=== PATIENT | female | born 1970 | race African-American/Black ===

== ENCOUNTER 2016-06-04 12:16 | Emergency (ER) | payer OTHER ==
--- NOTE | ~2016-06-04 | CT2 ---
[facility] A Service [facility] RADIOLOGY TEXT RESULTS PATIENT: JONATHAN JAIME LOCATION: [facility] : 74 UNIT #: [id number] AGE: [address]: Raymond Avila MD SEX: F ORDER DR: [id number] [facility] [address] [place], [place] [address] [id number] E MR#: [id number] Acc #: [id number] NAME: JONATHAN JAIME. : 1970 SEX: F STUDY DATE/TIME: 06/04/2016 13:45 UNIT: RIGO ROOM: STUDY DESCRIPTION: CT Abd and Pelv W Cont Attending Physician: Abdelrahman Avila M.D. Ordering Physician: Dominguez Romero M.D. Primary Care Physician: [facility] REPORT This report is preliminary unless electronic signature is present EXAM CT abdomen and pelvis INDICATION Diffuse abdominal pain, nausea and vomiting for 3 days. Mid and upper abdominal pain. TECHNIQUE CT of the abdomen and pelvis with p.o. and IV contrast (100 mL Isovue-370 IV contrast). Coronal and sagittal reconstructions were obtained. This CT exam was performed with one or more of the following radiation dose reduction techniques: automatic exposure control, adjustment of mA and/or kV according to patient size, and iterative reconstruction. COMPARISON CT abdomen dated 05/04/2008. FINDINGS ABDOMEN: The solid abdominal organs enhance normally. The gallbladder is not distended. There is borderline enlargement of the common bile duct in a patient status post cholecystectomy. The bowel is not dilated. No enlarged retroperitoneal or mesenteric lymph nodes. The abdominal aorta is normal in caliber. PELVIS: No pelvic mass. Uterus and ovaries are within normal limits. No enlarged pelvic or inguinal lymph nodes. No acute osseous abnormalities. IMPRESSION 1. No acute findings in the abdomen or pelvis. [facility] A Service [facility] RADIOLOGY TEXT RESULTS PATIENT: JONATHAN JAIME LOCATION: [facility] : 74 UNIT #: [id number] AGE: [address]: Raymnod Avila MD SEX: F ORDER DR: Dictated by... Harlan Carter M.D. THIS IS AN ELECTRONICALLY VERIFIED REPORT Harlan Carter M.D. at 06/04/2016 4:13 PM C/ernesto TD: 06/04/2016 15:13 JOB #: [id number] MEDICAL IMAGING REPORT Page 1 of 1 COPY
[2016-06-04 12:01] LABS: BASOPHIL% 0.8 % (0-2.5); EOSINOPHIL# 0.1 X10e3 (0-0.7); EOSINOPHIL% 1.3 % (0.0-7.0); HEMOGLOBIN 13.4 gm/dL (12.0-16.0); LYMPHOCYTE# 1.9 X10e3 (1.0-3.5); MEAN CELL VOLUME 85.2 FL (83-96); MEAN CORPUSCULAR HEMOGLOBIN 28.6 PG (28-34); MEAN CORPUSCULAR HGB CONC 33.6 g/dL (30-36); MEAN PLATELET VOLUME 7.7 FL (6.5-11.5); MONOCYTE# 0.3 X10e3 (0-1.0); NEUTROPHIL# 2.9 X10e3 (1.5-7.1); NEUTROPHIL% 55.9 % (40-75); PLATELET COUNT 338 X10e3 (140-420); RED BLOOD COUNT 4.69 X10e (3.90-5.30); RED CELL DISTRIBUTION WIDTH 15.6 % (11.0-15.5); WHITE BLOOD COUNT 5.3 X10e3 (4.0-10.5)
[2016-06-04 12:08] LABS: DIFF IND NO
[~2016-06-04 12:16] MED LIST: ADVAIR 250-501 EACH IH; ALBUTEROL17 GM INH; APRESOLINE PO; CELEXA PO; COLCHICINE PO; COMPAZINE10 MG PO; COREG PO; DEPO-PROVE150 MG/1 M IM; DIOVAN PO; DYAZIDE 37.5/251 CAP PO; FLEXERIL PO; HCTZ PO; LASIX PO; LORTAB 7.5-5001 TAB PO; METFORMIN HCL500 M1 PO; NORMODYNE PO; NORVASC PO; ORUDIS75 M1 PO; PHENERGAN PO; PRILOSEC PO; PROTONIX PO; REGLAN PO; SINGULAIR PO; ZOFRAN PO
[2016-06-04 12:34] LABS: ALBUMIN SERUM 4.2 g/dL (3.5-5.0); BILIRUBIN, DIRECT 0.1 mg/dL (0.0-0.2); BILIRUBIN,INDIRECT 0.4 mg/dL (0.0-0.9); BILIRUBIN,TOTAL 0.5 mg/dL (0.2-2.0); CALCIUM SERUM 9.2 mg/dL (8.4-10.2); CREATININE SERUM 0.8 mg/dL (0.6-1.4); GLOM FILT RATE Estimated 104.7 mL/min (>60); POTASSIUM 4.2 mmol/L (3.5-5.1); PROTEIN TOTAL SERUM 8.2 g/dL (6.0-8.3)
[2016-06-04 13:09] LABS: URINE SOURCE CLEAN CATCH
[2016-06-04 13:16] LABS: URINE APPEARANCE CLEAR; URINE BILIRUBIN NEG (NEG); URINE BLOOD 2+ (NEG); URINE COLOR YELLOW; URINE GLUCOSE NEG (NEG); URINE KETONE NEG (NEG); URINE LEUKOCYTE ESTERASE NEG (NEG); URINE NITRATE NEG (NEG); URINE PH 7.5 (5-8); URINE PROTEIN NEG (NEG); URINE SPECIFIC GRAVITY 1.005 (1.003-1.035); URINE UROBILINOGEN 0.2 MG/DL (NEG)
[2016-06-04 13:18] LABS: URBCS1 AUWI 0-2 /[HPF] (0-2); URINE BACTERIA AUWI NEG (NEGATIVE); URINE SQUAMOUS EPITHELIAL CELL NONE SEEN /[HPF]; UWBCS1 AUWI 0-2 (0-5)
[2016-06-04 13:20] LABS: CULTURE INDICATED? NO
== END 2016-06-04 14:45 | disposition home or self-care (01) ==
LOC: CED 12:16
PROVIDERS: Emergency Medicine
DX: R10.84 Generalized abdominal pain (principal); R11.2 Nausea with vomiting, unspecified; R19.7 Diarrhea, unspecified; I10 Essential (primary) hypertension; K21.9 Gastro-esophageal reflux disease without esophagitis; M19.90 Unspecified osteoarthritis, unspecified site; F17.210 Nicotine dependence, cigarettes, uncomplicated; Z88.0 Allergy status to penicillin
CPT/HCPCS: 36415; 74177; 80048; 80076; 81003; 82150; 83690; 84703; 85025; 96361; 96374; 96375; 99284; J1885; J2270; J2405; J2550; Q9967

== ENCOUNTER 2016-06-09 15:24 | Inpatient (IN) | payer OTHER ==
--- NOTE | ~2016-06-09 | HP ---
Unit #: [id number] #: [id number] Patient: JONATHAN JAIME [id number] [address] [address] [id number] I MR#: [id number] NAME: JONATHAN JAIME. ROOM: [facility] Age: 45 Sex: F Admission Date: 06/09/2016 : 1970 Attending Physician: Erin Araiza M.D. Primary Care Physician: [facility], [facility]. HISTORY AND PHYSICAL CHIEF COMPLAINT Intractable nausea and vomiting with accelerated hypertension. HISTORY OF PRESENT ILLNESS This 45-year-old female with GERD, hypertension, is admitted for intractable nausea and vomiting and accelerated hypertension. The patient states that she was well until two days prior to admission when she developed intractable, nonbloody nausea and vomiting, unable to keep down her medicines. She had one episode of nonbloody diarrhea, has experienced abdominal discomfort. She presented to this emergency department this afternoon with a blood pressure of 218/106. She was treated with a bolus of saline, given Zofran, morphine, GI cocktail, labetalol, Toradol, a couple dose of labetolol, Bentyl, Phenergan. She is actively vomiting as I walk into her room and her blood pressure is still elevated. On examination, she has mild generalized abdominal tenderness. PAST MEDICAL HISTORY 1. Essential hypertension. 2. Asthma. 3. GERD 10/2008 for intractable nausea and vomiting revealing chronic gastritis. 4. History of GERD. 5. History of supraventricular tachycardia 04/23. 6. Cervical conization for dysplasia. 7. Knee surgery. 8. Cholecystectomy. 9. . SOCIAL HISTORY The patient lives with her son. She smokes occasionally, does not drink alcohol, denies any possibility of and no illicit drug use. FAMILY HISTORY Hypertension. ALLERGEIS Penicillin resulting in hives. HOME MEDICATIONS 1. Maxzide daily. 2. Norvasc 10 mg daily. 3. Coreg 12.5 mg b.i.d. 4. Cozaar 100 mg daily. Unit #: [id number] #: [id number] Patient: JONATHAN JAIME 5. Zantac 300 mg q.h.s. 6. Bentyl 10 mg q.i.d. p.r.n. 7. Omeprazole 20 mg daily. 8. Vitamin D2 50,000 units each week. REVIEW OF SYSTEMS Hypertension, asthma, palpitations, GERD, gastritis, abdominal discomfort, above-mentioned surgeries. All other systems were reviewed and are otherwise negative. PHYSICAL EXAMINATION GENERAL APPEARANCE: A 45-year-old obese female who is actively vomiting when I see her in her room. VITAL SIGNS: Temperature 98.7. Pulse 76. Respirations 24. Initial blood pressure 218/106. O2 saturation 100% on room air. HEENT: Eyes: PERRLA. Extraocular muscles are intact. Pharynx is benign. NECK: Supple without adenopathy or thyromegaly. CHEST: Clear. CARDIAC: Normal S1, S2 without S3, S4 or murmur. ABDOMEN: Bowel sounds are present. The patient is tender in the epigastric right upper quadrant without rebound or guarding. No hepatosplenomegaly or masses. EXTREMITIES: Without clubbing, cyanosis or edema. Pedal pulses are present. NEUROLOGIC: The patient is awake, alert, oriented. Cranial nerves are intact. Equal strength throughout. DIAGNOSTIC STUDIES LABORATORY: Hematocrit 41.7, normal white count, platelet count. SMA-12 is normal. Normal lipase. Urinalysis: 2+ protein, 5 to 10 red cells, 5 to 10 white cells but moderate squamous cells making this a poor specimen. IMAGING: Acute abdominal series unremarkable. ASSESSMENT 1. Intractable nausea and vomiting. 2. Accelerated hypertension. The patient has not been able to keep down her medicines. 3. GERD. 4. History of supraventricular tachycardia. PLAN 1. Proton pump inhibitor IV. 2. Reglan, Zofran. 3. Blood pressure control. 4. IV fluids and supportive treatment. 5. SCDs for DVT prophylaxis. Dictated by Erin Araiza M.D. AML/bd TD: 06/10/2016 06:00 JOB #: [id number] Unit #: [id number] #: [id number] Patient: JONATHAN JAIME HISTORY AND PHYSICAL Page 1 of 1 X Erin Araiza MD HISTORY AND PHYSICAL
--- NOTE | ~2016-06-09 | DS ---
Unit #: [id number] #: [id number] Patient: JONATHAN JAIME [id number] [address] [place], [place] [address] [id number] I MR#: [id number] NAME: JONATHAN JAIME. ROOM: 312 Age: 45 Sex: F Admission Date: 06/09/2016 : 1970 Discharge Date: 06/14/2016 Attending Physician: Amalia Chaparro M.D. Primary Care Physician: [facility], [facility]. DISCHARGE SUMMARY REASON FOR ADMISSION Intractable nausea and vomiting, accelerated hypertension. HISTORY OF PRESENT ILLNESS/HOSPITAL COURSE The patient is a very pleasant 45-year-old -[place] female with an underlying history of GERD, hypertension, who was admitted secondary to intractable nausea and vomiting. She characterized her symptoms as going on several weeks prior to date of admission. She had, in fact, seen her primary care physician and was being worked up as an outpatient. Unfortunately, she developed this intractable nausea and vomiting, was unable to tolerate her blood pressure medications. Came to the emergency room where it was noted her blood pressure was 218/106. Subsequently, she was admitted for further evaluation. Initial p.o. challenge failed. She was unable to tolerate routine medications. Therefore, she was placed on a Cardene drip which was titrated and had to be placed initial part of hospital stay in the ICU. Gradually, this was discontinued. Transitioned into p.o. medications. We did place consultation to Dr. Santizo of gastroenterology services. Patient eventually underwent upper GI endoscopy which did reveal gastritis, erosive, as well as esophagitis in the distal portion. She was maintained on PPI therapy at b.i.d. dosing. Her blood pressure medications have been altered and/or changed. Please see below for complete regimen. At this point in time, patient is clinically stable for discharge. She has been able to tolerate a regular diet well without difficulty. She is to follow with her primary care physician at the [facility] in approximately seven to ten days for a blood pressure check. She is to be maintained on PPI therapy at b.i.d. dosing for approximately eight weeks. She will follow up with Dr. Santizo as an outpatient in approximately three to four weeks. Re-evaluation with upper GI endoscopy may be considered at a later point in time at the discretion of Dr. Santizo. FINAL DISCHARGE DIAGNOSES 1. Intractable nausea and vomiting. 2. Erosive gastritis. 3. Ulcerative esophagitis. 4. Obesity. 5. Hypertensive urgency, now resolved. Unit #: [id number] #: [id number] Patient: JONATHAN JAIME 6. Prior history of gastroesophageal reflux disease. 7. Helicobacter pylori positive on upper GI endoscopy. FINAL DISCHARGE MEDICATIONS 1. Bentyl 10 mg p.o. q.8 p.r.n. 2. Coreg 12.5 mg p.o. b.i.d. 3. Catapres/clonidine 0.2 mg p.o. daily. 4. Cozaar 25 mg p.o. daily. 5. Omeprazole 20 mg p.o. b.i.d. 6. H. pylori regimen to be determined by Dr. Santizo prior to discharge. DISCHARGE CONDITION Stable. DISCHARGE DISPOSITION Home. Dictated by... Cathie Conn/roma TD: 06/15/2016 11:52 JOB #: [id number] DISCHARGE SUMMARY Page 1 of 1 X Amalia Chaparro MD X DISCHARGE SUMMARY
--- NOTE | ~2016-06-09 | CO ---
Unit #: [id number] #: [id number] Patient: JONATHAN JAIME [id number] [address] [place], [place] [address] [id number] I MR#: [id number] NAME: JONATHAN JAIME. ROOM: [facility] Age: 45 Sex: F Admission Date: 06/09/2016 : 1970 Attending Physician: Amalia Chaparro M.D. Primary Care Physician: [facility]. Requesting Physician: Erin Araiza M.D. Consultation Date: 06/10/2016 CONSULTATION REPORT REASON FOR CONSULT Persistent severe nausea and vomiting. HISTORY OF PRESENT ILLNESS Ms. Jaime is a 45-year-old female with morbid obesity and hypertension in the past. Started with severe nausea, vomiting and abdominal pain last . She has not been able to take her medication or eat or drink since then and has persistent severe intractable vomiting. She had one episode of diarrhea, and there was no hematemesis. There is no blood in the stool. She says normally she moves her bowels pretty regularly. She does have a history of gastritis and reflux and takes PPIs regularly, also, at home. She denies taking any new medications, any new food or recent travel history. PAST MEDICAL HISTORY Past history is significant for hypertension, GERD and gastritis per EGD in 2008. She is status post cholecystectomy and C-sections. SOCIAL HISTORY Smoker. Denies any alcohol use. Denies any drug abuse. FAMILY HISTORY Mother with colon cancer. ALLERGIES Penicillin. MEDICATIONS Medications at home include Maxzide, Norvasc, Cozaar, Zantac, Bentyl, omeprazole and vitamin B12. REVIEW OF SYSTEMS A complete 10-point review of systems was done, which is unremarkable other than as has been detailed above. PHYSICAL EXAMINATION VITAL SIGNS: Vital signs are stable. Temperature 98.7, pulse 76, respirations 24, blood pressure 218/106. HEENT: Pupils equal and reactive. Sclera anicteric. Oral mucosa moist. NECK: No JVD. No lymphadenopathy. CHEST: Clear to auscultation bilaterally. CARDIOVASCULAR: Regular rate and rhythm. No murmurs. ABDOMEN: Mild generalized tenderness. No guarding. No rebound. Soft otherwise. Unit #: [id number] #: [id number] Patient: JONATHAN JAIME EXTREMITIES: Without clubbing, cyanosis or edema. NEUROLOGIC: Intact. SKIN: Warm and dry. DIAGNOSTIC STUDIES LABS: Hemoglobin is normal. Normal amylase and lipase. Chemistry seem unremarkable. IMAGING: CT abdomen twice, on 06/04 and 06/09, were unremarkable without any acute disease. ASSESSMENT 1. Patient with intractable nausea and vomiting. 2. Generalized abdominal pain. 3. Accelerated hypertension. 4. History of GERD and gastritis. PLAN At this time will keep her PPI and symptomatic treatment. Will need an upper endoscopy for further evaluation given her persistent abdominal pain, as well as family history of colon cancer. We will plan on a colonoscopy, also, in the near future. Treatment for blood pressure is already underway. Thank you, Dr. Araiza, for this interesting consult. Will follow along. Dictated by... Cathie Aguirre/john TD: 06/10/2016 10:01 JOB #: [id number] CONSULTATION REPORT Page 1 of 1 X Shaun Santizo MD X CONSULTATION REPORT
--- NOTE | ~2016-06-09 | CR2 ---
[facility] A Service of [facility] RADIOLOGY TEXT RESULTS PATIENT: JONATHAN JAIME LOCATION: [facility] : 74 UNIT #: [id number] AGE: [address]: Erin Araiza MD SEX: F ORDER DR: [id number] [facility] [address] [place], [place] [address] [id number] E MR#: [id number] Acc #: [id number] NAME: JONATHAN JAIME : 1970 SEX: F STUDY DATE/TIME: 06/09/2016 14:49 UNIT: RIGO ROOM: STUDY DESCRIPTION: CR Abdomen Acute Series Attending Physician: Raymond Avila Ordering Physician: Ed Doc Cathie Romero Primary Care Physician: [facility] IMAGING REPORT This report is preliminary unless electronic signature is present EXAM Acute abdomen series HISTORY Abdominal pain, nausea and vomiting and shortness of breath for the past week. TECHNIQUE A single view of the chest was obtained as well as flat and upright views of the abdomen. FINDINGS The chest examination is unremarkable with both lungs fully expanded and clear. In the abdomen, the bowel gas pattern is normal. There is no evidence of free air on the upright view. There is no evidence of mechanical obstruction and no suspicious masses or soft tissue calcifications are seen. Clips are seen in the right upper quadrant from previous surgery. IMPRESSION Normal bowel gas pattern. The lungs are clear. Dictated by... Nigel Renteria M.D. THIS IS AN ELECTRONICALLY VERIFIED REPORT Nigel Renteria M.D. at 06/10/2016 7:34 AM RLF/to TD: 06/09/2016 17:30 JOB #: [id number] [facility] A Service [facility] RADIOLOGY TEXT RESULTS PATIENT: JONATHAN JAIME LOCATION: [facility] CIC[facility]3-20 : 74 UNIT #: [id number] AGE: [address]: Erin Araiza MD SEX: F ORDER DR: MEDICAL IMAGING REPORT Page 1 of 1 COPY
--- NOTE | ~2016-06-09 | CR4 ---
[facility] Service of [facility] RADIOLOGY TEXT RESULTS PATIENT: JONATHAN JAIME LOCATION: [address] : 74 UNIT #: [id number] AGE: [address]: Amalia Chaparro MD SEX: F ORDER DR: [id number] [facility] [address] [place], [place] [address] [id number] I MR#: [id number] Acc #: [id number] NAME: JONATHAN JAIME : 1970 SEX: F STUDY DATE/TIME: 06/12/2016 12:51 UNIT: [facility] ROOM: [facility] STUDY DESCRIPTION: CR Abdomen Flat Upright or Dec Attending Physician: Amalia Chaparro M.D. Ordering Physician: Shaun Santizo M.D. Primary Care Physician: [facility], [facility]. MEDICAL IMAGING REPORT This report is preliminary unless electronic signature is present EXAM Flat and upright abdomen, 2 views, 06/12/2016. CLINICAL HISTORY 3-day history of intractable nausea and vomiting. FINDINGS Normal bowel gas pattern. There is a relative paucity of gas but no evidence free air or obstruction. IMPRESSION Negative acute abdominal series. Dictated by... Baldemar Rodriguez M.D. THIS IS AN ELECTRONICALLY VERIFIED REPORT Baldemar Rodriguez M.D. at 06/12/2016 4:51 PM TEV/bailee TD: 06/12/2016 14:46 JOB #: [id number] MEDICAL IMAGING REPORT Page 1 of 1 COPY
--- NOTE | ~2016-06-09 | CT4 ---
[facility] A Service of [facility] RADIOLOGY TEXT RESULTS PATIENT: JONATHAN JAIME LOCATION: [facility] CICCU3-20 : 74 UNIT #: [id number] AGE: [address]: Erin Araiza MD SEX: F ORDER DR: [id number] [facility] [address] [place], [place] [address] [id number] I MR#: [id number] Acc #: [id number] NAME: JONATHAN JAIME : 1970 SEX: F STUDY DATE/TIME: 06/10/2016 3:30 UNIT: CEDOF ROOM: 35075 STUDY DESCRIPTION: CT Abd and Pelv Wo Cont Attending Physician: Erin Araiza M.D. Ordering Physician: Erin Araiza M.D. [facility] REPORT This report is preliminary unless electronic signature is present EXAM CT abdomen and pelvis, noncontrast, 06/10/2016 HISTORY 45-year-old female admitted to the hospital through the ED yesterday complaining of 1-week history of abdomen pain, nausea and vomiting. Headache. TECHNIQUE CT examination of the abdomen and pelvis was performed without oral or IV contrast, as requested. This CT exam was performed with one or more of the following radiation dose reduction techniques: Automatic exposure control, adjustment of mA and/or kV according to patient size, and iterative reconstruction. COMPARISON CT abdomen and pelvis, 06/04/2016. FINDINGS ABDOMEN FINDINGS: Cholecystectomy. No visible bile duct dilatation. Liver, pancreas and spleen are normal in size and appearance. Both kidneys are negative, with no visible nephrolithiasis or evidence of urinary obstruction. Small bowel and colon are normal in caliber and appearance, as imaged. The appendix appears normal. Normal-caliber abdominal aorta. PELVIS FINDINGS: Uterus, ovaries, bladder and rectum are within normal limits. Limited lung base images are negative. IMPRESSION 1. No acute abnormality is seen within the abdomen or pelvis. No significant change since the recent study of 06/04/2016. [facility] A Service of [facility] RADIOLOGY TEXT RESULTS PATIENT: JONATHAN JAIME LOCATION: [address] : 74 UNIT #: [id number] AGE: [address]: Erin Araiza MD SEX: F ORDER DR: 2. Cholecystectomy. Dictated by... Everette Wolf M.D. THIS IS AN ELECTRONICALLY VERIFIED REPORT Everette Wolf M.D. at 06/10/2016 6:00 AM SAHIL/nasreen TD: 06/10/2016 04:12 JOB #: [id number] MEDICAL IMAGING REPORT Page 1 of 1 COPY
--- NOTE | ~2016-06-09 | CT71 ---
[facility] A Service [facility] RADIOLOGY TEXT RESULTS PATIENT: JONATHAN JAIME LOCATION: [facility]3 CICCU3-20 : 74 UNIT #: [id number] AGE: [address]: Erin Araiza MD SEX: F ORDER DR: [id number] [facility] [address] [place], [place] [address] [id number] I MR#: [id number] Acc #: [id number] NAME: JONATHAN JAIME : 1970 SEX: F STUDY DATE/TIME: 06/10/2016 3:25 UNIT: CEDOF ROOM: 71574 STUDY DESCRIPTION: CT Head Wo Contrast Attending Physician: Erin Araiza M.D. Ordering Physician: Erin Araiza M.D. Primary Care Physician: [facility], [facility]. MEDICAL IMAGING REPORT This report is preliminary unless electronic signature is present EXAM CT head, noncontrast, 06/10/2016 HISTORY 45-year-old female recently admitted to the hospital with headache and vomiting. TECHNIQUE CT examination of the head was performed without IV contrast. This CT exam was performed with one or more of the following radiation dose reduction techniques: Automatic exposure control, adjustment of mA and/or kV according to patient size, and iterative reconstruction. FINDINGS The images are somewhat degraded by patient motion artifact. No acute intracranial abnormality is visible. No evidence of intracranial hemorrhage, mass, mass effect, cerebral edema or hydrocephalus. No significant change since 11/04/2008. IMPRESSION 1. Motion limited examination. 2. No intracranial abnormality is demonstrated. No change since 11/04/2008. Dictated by... Everette Wolf M.D. THIS IS AN ELECTRONICALLY VERIFIED REPORT Everette Wolf M.D. at 06/10/2016 6:00 AM SAHIL/nasreen [facility] A Service [facility] RADIOLOGY TEXT RESULTS PATIENT: JONATHAN JAIME LOCATION: [facility] C[facility]-20 : 74 UNIT #: [id number] AGE: [address]: Erin Araiza MD SEX: F ORDER DR: TD: 06/10/2016 04:01 JOB #: [id number] MEDICAL IMAGING REPORT Page 1 of 1 COPY
--- NOTE | ~2016-06-09 | BMI ---
[facility] Nutrition Therapy DATE: 06/11/16 Patient: JONATHAN Patino ADDISON Physician: VIVIAN Address: [address] [place] [address] Room/Bed: [address], Zip: [place] [address] Admit Date: 06/09/16 Date of : 74 Height: 5 5 Weight: 257 117 HIGH BMI NOTE: ANTHROPOMETRICS: HT: 65" WT: 117 KG BMI: 42.9 DIET: CLEAR LIQUID RECOMMENDATIONS: 1. ONCE MEDICALLY FEASIBLE, ADVANCE THE PT TO A HEART HEALTHY DIET TOLERATED. Respectfully, DEEPAK WOODWARD RD, LD [facility] and Nutrition[facility] Services [facility] cc: client file
[2016-06-09 14:47] LABS: BASOPHIL% 0.9 % (0-2.5); EOSINOPHIL% 0.6 % (0.0-7.0); HEMATOCRIT 41.7 % (35.0-45.0); HEMOGLOBIN 13.7 gm/dL (12.0-16.0); LYMPHOCYTE# 1.9 X10e3 (1.0-3.5); LYMPHOCYTE% 34.3 % (17.0-45.0); MEAN CELL VOLUME 86.1 FL (83-96); MEAN CORPUSCULAR HEMOGLOBIN 28.3 PG (28-34); MEAN CORPUSCULAR HGB CONC 32.8 g/dL (30-36); MEAN PLATELET VOLUME 7.6 FL (6.5-11.5); MONOCYTE# 0.4 X10e3 (0-1.0); MONOCYTE% 6.7 % (3.0-12.0); NEUTROPHIL# 3.2 X10e3 (1.5-7.1); NEUTROPHIL% 57.5 % (40-75); PLATELET COUNT 351 X10e3 (140-420); RED BLOOD COUNT 4.85 X10e (3.90-5.30); RED CELL DISTRIBUTION WIDTH 15.4 % (11.0-15.5); WHITE BLOOD COUNT 5.6 X10e3 (4.0-10.5)
[2016-06-09 14:51] LABS: DIFF IND NO
[2016-06-09 15:14] LABS: ALBUMIN SERUM 4.4 g/dL (3.5-5.0); ALKALINE PHOSPHATASE 73 U/L (32-92); ALT (SGPT) 22 U/L (10-40); AMYLASE 24 U/L (0-46); AST (SGOT) 19 U/L (10-42); BILIRUBIN, DIRECT <0.1 mg/dL (0.0-0.2); BILIRUBIN,INDIRECT 0.4 mg/dL (0.0-0.9); BILIRUBIN,TOTAL 0.5 mg/dL (0.2-2.0); BLOOD UREA NITROGEN 16 mg/dL (9-23); BUN/CREATININE RATIO 17.77; CALCIUM SERUM 9.3 mg/dL (8.4-10.2); CARBON DIOXIDE 24 mmol/L (22-31); CHLORIDE 101 mmol/L (100-111); CREATININE SERUM 0.9 mg/dL (0.6-1.4); GLOM FILT RATE Estimated 90.8 mL/min (>60); GLUCOSE FASTING 109 mg/dL (70-110); LIPASE 27 U/L (22-51); POTASSIUM 3.7 mmol/L (3.5-5.1); PROTEIN TOTAL SERUM 8.2 g/dL (6.0-8.3); SODIUM 137 mmol/L (135-145)
[2016-06-09 20:07] LABS: URINE SOURCE CLEAN CATCH
[2016-06-09 20:14] LABS: URINE APPEARANCE CLEAR; URINE BILIRUBIN NEG (NEG); URINE BLOOD 1+ (NEG); URINE COLOR YELLOW; URINE GLUCOSE NEG (NEG); URINE KETONE NEG (NEG); URINE LEUKOCYTE ESTERASE NEG (NEG); URINE NITRATE NEG (NEG); URINE PH 7.5 (5-8); URINE PROTEIN 2+ (NEG); URINE SPECIFIC GRAVITY 1.012 (1.003-1.035); URINE UROBILINOGEN 0.2 MG/DL (NEG)
[2016-06-09 20:17] LABS: CULTURE INDICATED? YES; URINE BACTERIA AUWI 1+ (NEGATIVE); URINE SQUAMOUS EPITHELIAL CELL MOD /[HPF]
[2016-06-09] MEDS ORDERED: TRIAMTERENE-HC1 EACH PO (21:42)
[2016-06-09] MEDS ORDERED: NORVASC10 MG PO (21:42)
[2016-06-09] MEDS ORDERED: COZAAR100 MG PO (21:42)
[2016-06-09] MEDS ORDERED: ZANTAC300 MG PO (21:42)
[2016-06-09] MEDS ORDERED: COREG12.5 MG PO (21:42)
[2016-06-09] MEDS ORDERED: OMEPRAZOLE20 M2 PO (21:43)
[2016-06-09] MEDS ORDERED: DICYCLOMINE HCL20 MG PO (21:43)
[2016-06-09] MEDS ORDERED: VITAMIN D250000 UNIT PO (21:43)
[2016-06-10 06:03] LABS: BASOPHIL% 0.4 % (0-2.5); EOSINOPHIL% 0.1 % (0.0-7.0); HEMATOCRIT 44.6 % (35.0-45.0); HEMOGLOBIN 14.9 gm/dL (12.0-16.0); LYMPHOCYTE# 1.2 X10e3 (1.0-3.5); LYMPHOCYTE% 10.2 % (17.0-45.0); MEAN CELL VOLUME 85.4 FL (83-96); MEAN CORPUSCULAR HEMOGLOBIN 28.5 PG (28-34); MEAN CORPUSCULAR HGB CONC 33.3 g/dL (30-36); MEAN PLATELET VOLUME 7.8 FL (6.5-11.5); MONOCYTE# 0.5 X10e3 (0-1.0); MONOCYTE% 4.2 % (3.0-12.0); NEUTROPHIL# 9.8 X10e3 (1.5-7.1); NEUTROPHIL% 85.1 % (40-75); PLATELET COUNT 337 X10e3 (140-420); RED BLOOD COUNT 5.22 X10e (3.90-5.30); RED CELL DISTRIBUTION WIDTH 15.5 % (11.0-15.5); WHITE BLOOD COUNT 11.5 X10e3 (4.0-10.5)
[2016-06-10 06:04] LABS: DIFF IND NO
[2016-06-10 08:12] LABS: BUN/CREATININE RATIO 17.14; CALCIUM SERUM 8.8 mg/dL (8.4-10.2); CREATININE SERUM 0.7 mg/dL (0.6-1.4); POTASSIUM 3.5 mmol/L (3.5-5.1)
[2016-06-10 13:33] LABS: AMPHETAMINE NEG (NEG); BARBITURATES NEG (NEG); BENZODIAZEPINES NEG (NEG); COCAINE NEG (NEG); MARIJUANA POS (NEG); OPIATES POS (NEG); TRICYCLIC ANTIDEPRESSANTS NEG (NEG); U METHADONE NEG (NEG)
[2016-06-11 06:00] LABS: BASOPHIL% 0.4 % (0-2.5); HEMATOCRIT 41.9 % (35.0-45.0); HEMOGLOBIN 14.2 gm/dL (12.0-16.0); LYMPHOCYTE# 1.8 X10e3 (1.0-3.5); LYMPHOCYTE% 17.1 % (17.0-45.0); MEAN CELL VOLUME 85.3 FL (83-96); MEAN CORPUSCULAR HEMOGLOBIN 28.9 PG (28-34); MEAN CORPUSCULAR HGB CONC 33.9 g/dL (30-36); MEAN PLATELET VOLUME 7.8 FL (6.5-11.5); MONOCYTE# 0.7 X10e3 (0-1.0); MONOCYTE% 6.3 % (3.0-12.0); NEUTROPHIL% 76.2 % (40-75); PLATELET COUNT 355 X10e3 (140-420); RED BLOOD COUNT 4.91 X10e (3.90-5.30); RED CELL DISTRIBUTION WIDTH 15.6 % (11.0-15.5); WHITE BLOOD COUNT 10.5 X10e3 (4.0-10.5)
[2016-06-11 06:07] LABS: DIFF IND NO
[2016-06-11 07:07] LABS: ALBUMIN SERUM 4.2 g/dL (3.5-5.0); BILIRUBIN,TOTAL 0.6 mg/dL (0.2-2.0); BUN/CREATININE RATIO 12.85; CALCIUM SERUM 8.6 mg/dL (8.4-10.2); CREATININE SERUM 0.7 mg/dL (0.6-1.4); POTASSIUM 3.5 mmol/L (3.5-5.1); PROTEIN TOTAL SERUM 8.1 g/dL (6.0-8.3)
[2016-06-12 05:25] LABS: BASOPHIL% 0.6 % (0-2.5); EOSINOPHIL% 0.2 % (0.0-7.0); HEMATOCRIT 37.4 % (35.0-45.0); HEMOGLOBIN 12.4 gm/dL (12.0-16.0); LYMPHOCYTE% 40.1 % (17.0-45.0); MEAN CELL VOLUME 85.9 FL (83-96); MEAN CORPUSCULAR HEMOGLOBIN 28.4 PG (28-34); MEAN PLATELET VOLUME 7.5 FL (6.5-11.5); MONOCYTE# 0.8 X10e3 (0-1.0); MONOCYTE% 11.2 % (3.0-12.0); NEUTROPHIL# 3.6 X10e3 (1.5-7.1); NEUTROPHIL% 47.9 % (40-75); PLATELET COUNT 289 X10e3 (140-420); RED BLOOD COUNT 4.36 X10e (3.90-5.30); RED CELL DISTRIBUTION WIDTH 15.6 % (11.0-15.5); WHITE BLOOD COUNT 7.6 X10e3 (4.0-10.5)
[2016-06-12 05:32] LABS: DIFF IND NO
[2016-06-12 06:44] LABS: BUN/CREATININE RATIO 13.63; CALCIUM SERUM 8.1 mg/dL (8.4-10.2); CREATININE SERUM 1.1 mg/dL (0.6-1.4); GLOM FILT RATE Estimated 71.2 mL/min (>60); POTASSIUM 3.7 mmol/L (3.5-5.1)
[2016-06-14] MEDS ORDERED: COZAAR25 MG PO (14:46)
[2016-06-14] MEDS ORDERED: COREG12.5 MG PO (14:48)
[2016-06-14] MEDS ORDERED: OMEPRAZOLE20 M2 PO (14:49)
[2016-06-14] MEDS ORDERED: CLONIDINE PO (15:12)
== END 2016-06-14 16:26 | disposition home or self-care (01) | DRG 392 ==
LOC: CED 15:24 → CEDOF 22:50 → CICCU3 06-10 04:16 → C3A PCU 06-13 22:31
PROVIDERS: Emergency Medicine; Family Medicine; Internal Medicine
PROC: 4A02X4A Measurement of Cardiac Electrical Activity, Guidance, External Approach (ICD-10-PCS; 2016-06-10)
PROC: 0DB68ZX Excision of Stomach, Via Natural or Artificial Opening Endoscopic, Diagnostic (ICD-10-PCS; principal; 2016-06-10 13:11)
PROC: 02HV33Z Insertion of Infusion Device into Superior Vena Cava, Percutaneous Approach (ICD-10-PCS; 2016-06-10 13:11)
DX: K29.00 Acute gastritis without bleeding (principal); Z68.41 Body mass index [BMI] 40.0-44.9, adult; I10 Essential (primary) hypertension; K22.10 Ulcer of esophagus without bleeding; I16.1 Hypertensive emergency; R11.2 Nausea with vomiting, unspecified; F17.210 Nicotine dependence, cigarettes, uncomplicated; K21.9 Gastro-esophageal reflux disease without esophagitis; E66.01 Morbid (severe) obesity due to excess calories; B96.81 Helicobacter pylori [H. pylori] as the cause of diseases classified elsewhere; Z90.49 Acquired absence of other specified parts of digestive tract; Z88.0 Allergy status to penicillin; Z80.0 Family history of malignant neoplasm of digestive organs
CPT/HCPCS: 70450; 74020; 74022; 74176; 80048; 80053; 80076; 80307; 81003; 82150; 82947; 83036; 83690; 84443; 84703; 85025; 86677; 87086; 88305; 88312; 88313; 88323; 88341; 88342; 88368; 88369; 96361; 96372; 96374; 96375; 96376; 99285; C9113; J0360; J0500; J0780; J1885; J2270; J2405; J2550; J2765

== ENCOUNTER → 2016-07-23 | Outpatient (CLI) | payer OTHER ==
[~2016-07-23] MED LIST changes: +CLONIDINE PO; +COREG12.5 MG PO; +COZAAR100 MG PO; +COZAAR25 MG PO; +DICYCLOMINE HCL20 MG PO; +NORVASC10 MG PO; +OMEPRAZOLE20 M2 PO; +TRIAMTERENE-HC1 EACH PO; +VITAMIN D250000 UNIT PO; +ZANTAC300 MG PO
--- NOTE | ~2016-07-23 | MY25 ---
[facility] A Service of [facility] RADIOLOGY TEXT RESULTS PATIENT: JONATHAN JAIME LOCATION: [facility] : 74 UNIT #: [id number] AGE: [address]: BETH REN APRN SEX: F ORDER DR: [id number] [facility] [address] [place], [place] [address] [id number] O MR#: [id number] Acc #: [id number] NAME: JONATHAN JAIME : 1970 SEX: F STUDY DATE/TIME: 07/23/2016 10:50 UNIT: [facility] ROOM: STUDY DESCRIPTION: IGLESIA BAXTERG W/ CAD UNI RT Attending Physician: Beth Ren Referring Physician: Tiffani Rojas M.D. Ordering Physician: Physician Non-Staff Primary Care Physician: [facility] IMAGING REPORT This report is preliminary unless electronic signature is present EXAM Unilateral right digital diagnostic mammogram with CAD, 07/23/2016 INDICATION 46-year-old female presenting for 6-month followup of a probably benign nodule, perhaps an intramammary node in the upper outer posterior right breast. No personal or family history of breast cancer. No prior surgeries. The patient reports intermittent breast tenderness on the right at times but no symptoms today. TECHNIQUE Magnification CC, magnification MLO and true lateral views of the right breast were obtained and reviewed with an FDA-approved CAD device. COMPARISON 09/25/2015, 08/16/2015 FINDINGS The lobulated nodule in the upper outer posterior right breast is unchanged. It measures about 16.0 x 11.0 mm. This may represent an intramammary node. The patient has undergone a prior ultrasound at an outside facility which demonstrated no ultrasound correlate and the nodule is stable mammographically over the past nearly 10 months and is therefore probably benign. No suspicious calcifications. Remainder of the right breast appears negative and unchanged. Absent new or worsening symptoms, recommend reassessment with a bilateral screening mammogram in September 2016 to maintain an annual screening schedule. Findings and recommendations were discussed with the patient here in the department. She voiced understanding and agreement. IMPRESSION The probably benign nodule in the posterior upper outer right breast is STS. [facility] A Service of [facility] & [facility] RADIOLOGY TEXT RESULTS PATIENT: JONATHAN JAIME LOCATION: [facility] : 74 UNIT #: [id number] AGE: [address]: BEHT REN APRN SEX: F ORDER DR: unchanged over the past 10 months. Recommend reassessment of the nodule in conjunction with a bilateral screening mammogram in September 2016 to maintain an annual screening schedule. See discussion above. Patients over the age of 40 are entered into a reminder system with target due date for the next mammogram. A result letter will also be sent to the patient. BIRADS: 3 Probably Benign Finding; Short interval follow-up suggested Dictated by... Paul Wilde M.D. THIS IS AN ELECTRONICALLY VERIFIED REPORT Paul Wilde M.D. at 07/23/2016 5:32 PM Radha TD: 07/23/2016 12:46 JOB #: [id number] MEDICAL IMAGING REPORT Page 1 of 1 COPY
== END | disposition home or self-care (01) ==
LOC: CMAM 10:26
DX: R92.2 Inconclusive mammogram (principal)
CPT/HCPCS: G0206

== ENCOUNTER 2016-09-03 10:45 | Emergency (ER) | payer OTHER ==
[~2016-09-03] VITALS: Ht 162.6 cm; Wt 111.1 kg
== END 2016-09-03 11:20 | disposition home or self-care (01) ==
LOC: CFTX 10:45 → CED 10:45 → CFTX 11:13
DX: K13.0 Diseases of lips (principal); J45.909 Unspecified asthma, uncomplicated; I10 Essential (primary) hypertension; E11.9 Type 2 diabetes mellitus without complications; K21.9 Gastro-esophageal reflux disease without esophagitis; F17.210 Nicotine dependence, cigarettes, uncomplicated; Z88.0 Allergy status to penicillin
CPT/HCPCS: 99282